=== PATIENT | female | born 1990 | race American Indian/Alaskan Native ===

== ENCOUNTER 2018-07-20 15:03 | Emergency (ER) | payer MEDICAID ==
[2018-07-20 15:58] VITALS: BP 106/70
--- NOTE | 2018-07-20 15:58 | Emergency Department Report ---
Blank Doc - Documentation Documentation: This is a 28-year-old female that presents with bilateral heel pain. Stated is unsure if she injured. This initial assessment/diagnostic orders/clinical plan/treatment(s) is/are subject to change based on patient's health status, clinical progression and re- assessment by fellow clinical providers in the ED. Further treatment and workup at subsequent clinical providers discretion. Patient/guardians urged not to elope from the ED as their condition may be serious if not clinically assessed and managed. Initial orders include: 1- Patient sent to [facility] for further evaluation and treatment 2- xrays
--- NOTE | 2018-07-20 16:46 | XRay Report ---
PROCEDURE: Three-view right foot series, 3 view left foot series TECHNIQUE: AP, oblique and lateral views of the right and left foot were obtained. HISTORY: foot pain COMPARISONS: None FINDINGS: No fractures or dislocation are identified. No radiopaque foreign bodies are identified. Bone density appears normal. Joint spaces are well preserved. Soft tissue swelling appears to be visualized aspec t proximal end of the right foot. Small calcaneal spur visualized at the plantar fascial insertion site right foot. No other calcaneal spurs are seen in the right or left foot. IMPRESSION: Small calcaneal spur visualized right foot. No evidence of fracture or dislocation right or left foot. There appears to be soft tissue swelling medial aspect right foot posteriorly.. This document is electronically signed by Grover Ryan MD., July 20 2018 04:44:21 PM ET
[2018-07-20] MEDS ORDERED: ULTRAM PO ONE (17:59)
--- NOTE | 2018-07-20 18:18 | Emergency Department Report ---
ED Lower Extremity HPI - General Chief Complaint: Extremity Injury, Lower Stated Complaint: PAIN IN BOTH FEET Time Seen by Provider: 07/20/18 15:57 Source: patient Mode of arrival: Ambulatory Limitations: No Limitations - History of Present Illness Initial Comments: Patient is a 28 -year-old -[place] female who works in [employer] standing 8-10 R shifts who presents with bilateral heel pain for the last 6 months patient denies fall or injury or trauma pain described as 5/10 exacerbated by prolonged standing her pain is temporarily relieved by off offloading and rest was there is no open sores no wounds no bleeding or deformity MD Complaint: other (bilat foot pain ) Onset/Timin -: month(s) Injury: Foot: Right, Left Type of Injury: unknown Place: work Severity: moderate Severity scale (0 -10): 5 Improves With: rest Worsens With: weight bearing Context: other Associated Symptoms: swelling (right heel ), ambulatory. denies: numbness, tingling - Related Data Previous Rx's Medication Instructions Recorded Last Taken Type Capsaicin 0.075% [Zostrix Hp 1 applicatio TP TID PRN #1 tube 07/20/18 Unknown Rx 0.075%] Ibuprofen [Motrin 800 MG tab] 800 mg PO Q8HR PRN #30 tablet 07/20/18 Unknown Rx Allergies Allergy/AdvReac Type Severity Reaction Status Date / Time No Known Allergies Allergy Unverified 07/20/18 15:05 ED Review of Systems ROS: Stated complaint: PAIN IN BOTH FEET Other details as noted in HPI Constitutional: denies: chills, fever Eyes: denies: eye pain, eye discharge, vision change ENT: denies: ear pain, throat pain Respiratory: denies: cough, shortness of breath, wheezing Cardiovascular: denies: chest pain, palpitations Endocrine: no symptoms reported Gastrointestinal: denies: abdominal pain, nausea, vomiting, diarrhea Genitourinary: denies: urgency, dysuria, discharge Musculoskeletal: joint swelling, myalgia, other (bilat heel tenderness mild swelling right ). denies: back pain, arthralgia Skin: denies: rash, lesions Neurological: denies: headache, weakness, paresthesias Psychiatric: denies: anxiety, depression Hematological/Lymphatic: denies: easy bleeding, easy bruising ED Past Medical Hx - Past Medical History Previous Medical History?: No - Surgical History Additional Surgical History: C/S - Social History Smoking Status: Current Every Day Smoker - Medications Home Medications: Home Medications Medication Instructions Recorded Confirmed Last Taken Type Capsaicin 0.075% [Zostrix Hp 1 applicatio TP TID PRN #1 tube 07/20/18 Unknown Rx 0.075%] Ibuprofen [Motrin 800 MG tab] 800 mg PO Q8HR PRN #30 tablet 07/20/18 Unknown Rx ED Physical Exam - General Limitations: No Limitations General appearance: alert, in no apparent distress - Head Head exam: Present: atraumatic, normocephalic - Eye Eye exam: Present: normal appearance, PERRL, EOMI Pupils: Present: normal accommodation - ENT ENT exam: Present: mucous membranes moist - Neck Neck exam: Present: normal inspection, full ROM. Absent: tenderness, lymphadenopathy - Respiratory Respiratory exam: Present: normal lung sounds bilaterally. Absent: respiratory distress - Cardiovascular Cardiovascular Exam: Present: regular rate, normal rhythm, normal heart sounds. Absent: systolic murmur, diastolic murmur, rubs, gallop - GI/Abdominal GI/Abdominal exam: Present: soft, normal bowel sounds. Absent: distended, tenderness, bruit, hernia - Rectal Rectal exam: Present: deferred - Extremities Exam Extremities exam: Present: normal inspection, full ROM, tenderness (bilat heel ), normal capillary refill, joint swelling, other (bilat heel tenderness no erythema no deformity mild swelling right foot ankle rom intact pedal pulses intact pt is ambulatory with steady gait ). Absent: pedal edema, calf tenderness - Back Exam Back exam: Present: normal inspection, full ROM. Absent: tenderness, CVA tenderness (R), CVA tenderness (L), muscle spasm, rash noted - Neurological Exam Neurological exam: Present: alert, oriented X3, CN II-XII intact, normal gait, reflexes normal - Psychiatric Psychiatric exam: Present: normal affect, normal mood - Skin Skin exam: Present: warm, dry, intact, normal color. Absent: rash ED Course Vital Signs 07/20/18 15:57 Temperature 98.8 F Pulse Rate 98 H Respiratory 16 Rate Blood Pressure 106/70 O2 Sat by Pulse 100 Oximetry ED Lower Extremity MDM - Radiology Data Radiology results: report reviewed, image reviewed Ordering Physician: PAULA BRANCH NP Date of Service: 06/12/19 Procedure(s): XR foot BILAT 3+V Accession Number(s): [id number] cc: GENARO GAMEZ Time In Minutes: PROCEDURE: Three-view right foot series, 3 view left foot series TECHNIQUE: AP, oblique and lateral views of the right and left foot were obtained. HISTORY: foot pain COMPARISONS: None FINDINGS: No fractures or dislocation are identified. No radiopaque foreign bodies are identified. Bone density appears normal. Joint spaces are well preserved. Soft tissue swelling appears to be visualized aspect proximal end of the right foot. Small calcaneal spur visualized at the plantar fascial insertion site right foot. No other calcaneal spurs are seen in the right or left foot. IMPRESSION: Small calcaneal spur visualized right foot. No evidence of fracture or dislocation right or left foot. There appears to be soft tissue swelling medial aspect right foot posteriorly.. This document is electronically signed by Maurice Ryan MD., July 20 2018 04:44:21 PM ET Transcribed By: DFN Dictated By: MAURICE RYAN MD Electronically Authenticated By: MAURICE RYAN MD Signed Date/Time: 07/20/18 1646 DD/ [id number] TD/TT: 07/20/18 1620 - Medical Decision Making X-ray demonstrates right foot with mild soft tissue swelling there is no evidence of fracture. Pulses are intact patient is ambulatory with steady gait plan x-rays were obtained following the podiatry rest offloading patient verbalized agreement and understanding discharge plan patient will be DC'd home in stable condition at this time Critical care attestation.: If time is entered above; I have spent that time in minutes in the direct care of this critically ill patient, excluding procedure time. ED Disposition Clinical Impression: Heel spur Qualifiers: Laterality: unspecified laterality Qualified Code(s): M77.30 - Calcaneal spur, unspecified foot Disposition: DC-01 TO HOME OR SELFCARE Is pt being admited?: No Does the pt Need Aspirin: No Condition: Stable Instructions: Plantar Fasciitis (ED), Musculoskeletal Pain (ED) Prescriptions: Ibuprofen [Motrin 800 MG tab] 800 mg PO Q8HR PRN #30 tablet PRN Reason: pain Capsaicin 0.075% [Zostrix Hp 0.075%] 1 applicatio TP TID PRN #1 tube PRN Reason: pain Referrals: [facility] [Outside] - 3-5 Days Forms: Work/School Release Form(ED) Time of Disposition: 18:36
== END 2018-07-20 18:47 | disposition home or self-care (01) ==
LOC: ED 15:03
DX: M77.31 Calcaneal spur, right foot (principal); M77.32 Calcaneal spur, left foot; F17.200 Nicotine dependence, unspecified, uncomplicated; Z79.1 Long term (current) use of non-steroidal anti-inflammatories (NSAID); Z79.899 Other long term (current) drug therapy